=== PATIENT | female | born 1980 | race Hispanic/Latino ===

== ENCOUNTER 2022-12-25 19:14 | Inpatient (IN) | payer OTHER ==
[~2022-12-25 19:14] MED LIST: Iopamidol 300 61% 100 ML VIAL FS ONE
[2022-12-25 20:31] LABS: #Eosinphils 0.4 10x3/uL (0.0-0.5); #Monocytes 0.5 10x3/uL (0.0-1.1); #Neutrophils 6.9 10x3/uL (1.5-8.4); %Basophils 0.2 % (0.0-2.0); %Eosinophils 3.4 % (0.0-6.0); %Lymphocytes 25.2 % (18.0-47.0); %Monocytes 4.9 % (0.0-10.0); %Neutrophils 65.8 % (40.0-75.0); Hematocrit 31.6 % (34.9-44.5); Hemoglobin 9.7 g/dL (12.0-15.5); Mean Corpuscular HGB CONC 30.7 g/dL (32.0-36.0); Mean Corpuscular Hemoglobin 21.1 pg (27.0-33.0); Mean Corpuscular Volume 68.8 fl (81.6-98.3); Mean Platelet Volume 10.5 fl (7.4-10.4); Platelet Count 316 10x3/uL (150-450); RBC Distribution Width 17.5 % (11.5-14.5); Red Blood Cell (RBC) Count 4.59 10x6/uL (3.90-5.03); White Blood Cell (WBC) Count 10.5 10x3/uL (3.5-10.5)
[2022-12-25 20:37] LABS: Anion Gap 18 mmol/L (10-20); BUN (Urea Nitrogen) 8 mg/dL (7.0-18.7); Calc. Creatinine Clearance 0 mL/min (70-130); Carbon Dioxide 20 mmol/L (22-29); Chloride 106 mmol/L (98-107); Potassium 4.9 mmol/L (3.5-5.1); Sodium 139 mmol/L (136-145)
[2022-12-25 20:38] LABS: ALT (SGPT) 35 U/L (8-55); AST (SGOT) 53 U/L (5-34); Albumin 3.6 g/dL (3.5-5.0); Alkaline Phosphatase 89 U/L (40-110); Bilirubin, Total 0.4 mg/dL (0.2-1.2); Calcium 8.6 mg/dL (7.8-10.44); Estimated GFR 115; Globulin 3.8 g/dL (2.4-3.5); Glucose 95 mg/dL (70-105); Lipase 8 U/L (8-78); Protein, Total 7.4 g/dL (6.0-8.3)
[2022-12-25 21:36] LABS: Microcytosis SLIGHT = 6-15 cells (100X) (0-5/hpf)
[2022-12-25] MEDS ORDERED: Ondansetron PF 4 MG/2 ML Vial ONE (22:04)
[2022-12-25] MEDS ORDERED: Morphine 4 MG/ML VIAL ONE (22:04)
[2022-12-25 22:09] LABS: Bilirubin Neg (Negative); Blood, Urine 10 (Negative); Clarity Clear (Clear); Glucose, Urine (Dipstick) Normal (Negative); Ketone, Urine Negative (Negative); Leukocyte 100 (Negative); Nitrite Negative (Negative); Protein, Urine (Dipstick) Negative (Neg-Trace); Urobilinogen Normal mg/dL (Less than 2)
[2022-12-25 22:42] LABS: Bacteria/HPF None Seen HPF (None Seen); CAUTI Indications for Culture Pelvic or flank pain; RBC/HPF 0-3 HPF (0-3); WBC/HPF 0-3 HPF (0-3)
[2022-12-25 22:43] LABS: Urine Culture Reflex No No
[2022-12-25] MEDS ORDERED: HYDROmorphone 0.5 MG/0.5 ML SYRINGE ONE (23:33)
[2022-12-25] MEDS ORDERED: Piperacillin/Tazobactam 3.375 GM VIAL ONE (23:33)
[2022-12-26 00:43] VITALS: BMI 62.0
[2022-12-26] MEDS ORDERED: Morphine 4 MG/ML VIAL ONE (02:32)
[2022-12-26 04:28] LABS: Lactic Acid 1.5 mmol/L (0.5-2.2)
[2022-12-26] MEDS ORDERED: Ketorolac Tromethamine 30 MG/ML VIAL IVP SCH (09:15)
[2022-12-26] MEDS ORDERED: CEFAZOLIN 2 GM in Sodium Chloride 0.9% 100 ML IVPB SCH (09:15)
[2022-12-26] MEDS: Sodium Chloride 0.9% 1,000 ML IV SCH ×2 (09:22→17:30)
[2022-12-26] MEDS ORDERED: EPINEPHrine 1 MG/ML VIAL ONE (09:25)
[2022-12-26] MEDS ORDERED: Bupivacaine PF 0.5% 30 ML VIAL ONE (09:26)
[2022-12-26] MEDS ORDERED: PROPOFOL 20 ML ONE ×2 (09:56→13:55)
[2022-12-26] MEDS ORDERED: fentaNYL 50 mcg/mL 1 mL Vial ONE ×6 (09:56→14:38)
[2022-12-26] MEDS ORDERED: Lidocaine 1% PF 5 ML VIAL ONE (10:08)
[2022-12-26] MEDS ORDERED: Rocuronium Bromide 10 MG/ML (10ML VIAL) ONE ×2 (10:08→12:54)
[2022-12-26] MEDS ORDERED: Dexamethasone 4 mg/ml Vial ONE (10:13)
[2022-12-26] MEDS ORDERED: Ondansetron PF 4 MG/2 ML Vial ONE (10:13)
[2022-12-26] MEDS ORDERED: CEFAZOLIN 1 GM VIAL ONE (10:27)
[2022-12-26] MEDS ORDERED: KETAMINE 100 MG/ML (5ML VIAL) ONE (10:38)
[2022-12-26] MEDS ORDERED: Glycopyrrolate 0.2 MG/ML 5 ML SYRINGE ONE (12:17)
[2022-12-26] MEDS ORDERED: Ketorolac Tromethamine 30 MG/ML VIAL ONE (12:45)
[2022-12-26] MEDS ORDERED: SUGAMMADEX SODIUM 200 MG/2 ML VIAL ONE (13:01)
[2022-12-26] MEDS ORDERED: Ondansetron PF 4 MG/2 ML Vial IVP PRN (14:23)
[2022-12-26] MEDS ORDERED: TETANUS, DIPHTHERIA TOX,ADULT (TDVAX) 0.5 ML VIAL IM ONE (14:23)
[2022-12-26] MEDS ORDERED: hydrALAZINE 20 MG/ML VIAL SLOW IVP PRN (14:23)
[2022-12-26] MEDS ORDERED: Ondansetron ODT 4 MG TAB PO PRN (14:23)
[2022-12-26] MEDS ORDERED: traMADol HCl 50 MG TAB PO PRN (14:23)
[2022-12-26] MEDS ORDERED: Gabapentin 300 MG CAP PO SCH (15:00)
[2022-12-26] MEDS: Morphine 4 MG/ML VIAL SLOW IVP PRN ×4 (15:08→20:00)
[2022-12-26] MEDS: Sodium Chloride 0.45% 1,000 ML IV SCH ×2 (15:14→23:02)
[2022-12-26] MEDS: Gabapentin 300 MG CAP PO SCH ×2 (16:36→20:01)
[2022-12-26] MEDS: Ketorolac Tromethamine 30 MG/ML VIAL IVP SCH ×2 (18:00→23:02)
[2022-12-26] MEDS: Famotidine 20 MG TAB PO SCH (20:01)
[2022-12-27] MEDS: Morphine 4 MG/ML VIAL SLOW IVP PRN ×2 (02:32→08:21)
[2022-12-27 03:49] LABS: #Monocytes 0.8 10x3/uL (0.0-1.1); %Basophils 0.1 % (0.0-2.0); %Eosinophils 0.4 % (0.0-6.0); %Lymphocytes 14.6 % (18.0-47.0); %Monocytes 7.5 % (0.0-10.0); %Neutrophils 76.9 % (40.0-75.0); Hematocrit 29.5 % (34.9-44.5); Hemoglobin 8.8 g/dL (12.0-15.5); Mean Corpuscular HGB CONC 29.8 g/dL (32.0-36.0); Mean Corpuscular Hemoglobin 21.4 pg (27.0-33.0); Mean Corpuscular Volume 71.8 fl (81.6-98.3); Mean Platelet Volume 10.3 fl (7.4-10.4); Platelet Count 330 10x3/uL (150-450); RBC Distribution Width 17.6 % (11.5-14.5); Red Blood Cell (RBC) Count 4.11 10x6/uL (3.90-5.03); White Blood Cell (WBC) Count 10.4 10x3/uL (3.5-10.5)
[2022-12-27 03:50] LABS: ALT (SGPT) 32 U/L (8-55); AST (SGOT) 21 U/L (5-34); Albumin 3.5 g/dL (3.5-5.0); Alkaline Phosphatase 78 U/L (40-110); Anion Gap 13 mmol/L (10-20); BUN (Urea Nitrogen) 8 mg/dL (7.0-18.7); Bilirubin, Total 0.7 mg/dL (0.2-1.2); Calc. Creatinine Clearance 301 mL/min (70-130); Carbon Dioxide 24 mmol/L (22-29); Chloride 106 mmol/L (98-107); Estimated GFR 114; Glucose 125 mg/dL (70-105); Potassium 3.6 mmol/L (3.5-5.1); Protein, Total 6.5 g/dL (6.0-8.3); Sodium 139 mmol/L (136-145)
[2022-12-27] MEDS: Ketorolac Tromethamine 30 MG/ML VIAL IVP SCH ×2 (05:39→11:22)
[2022-12-27] MEDS: Gabapentin 300 MG CAP PO SCH ×2 (08:20→15:30)
[2022-12-27] MEDS: Famotidine 20 MG TAB PO SCH (08:21)
[2022-12-27] MEDS ORDERED: Hydrochlorothiazide 25 MG TAB PO SCH (09:00)
[2022-12-27 09:24] VITALS: TEMP 98.7
[2022-12-27] MEDS: Sodium Chloride 0.45% 1,000 ML IV SCH (09:59)
[2022-12-27] MEDS ORDERED: Amoxicillin/Potassium Clav 875 MG TAB PO SCH ×2 (11:00→21:00)
[2022-12-27] MEDS ORDERED: Acetaminophen 500 MG TAB PO PRN (11:46)
[2022-12-27] MEDS ORDERED: Acetaminophen 500 MG TAB PO SCH (12:00)
[2022-12-27 12:04] VITALS: BP 124/76
[2022-12-27] MEDS ORDERED: Ibuprofen 600 MG TAB PO PRN (17:00)
== END 2022-12-27 17:51 | disposition home or self-care (01) | DRG 354 ==
LOC: CSHERS 19:14 → CSHERHOLD 23:55 → CSHICU 12-26 08:05
PROVIDERS: ADMIT Surgery; ATTEND Surgery
PROC: 0WUF4JZ Supplement Abdominal Wall with Synthetic Substitute, Percutaneous Endoscopic Approach (ICD-10-PCS; principal; 2022-12-26)
PROC: 8E0W4CZ Robotic Assisted Procedure of Trunk Region, Percutaneous Endoscopic Approach (ICD-10-PCS; 2022-12-26)
DX: K43.0 Incisional hernia with obstruction, without gangrene (principal); Z68.44 Body mass index [BMI] 60.0-69.9, adult; I10 Essential (primary) hypertension; Z79.899 Other long term (current) drug therapy; E66.01 Morbid (severe) obesity due to excess calories; Z98.890 Other specified postprocedural states
CPT/HCPCS: 36415; 74177; 80053; 81001; 83605; 83690; 85025; 86850; 86900; 86901; 87040; 87077; 87149; 94762; C1781; J0171; J0690; J1100; J1170; J1650; J1885; J2270; J2405; J2543; J2704; J3010; J7050; Q9967; S0020

== ENCOUNTER 2023-04-08 16:21 | Emergency (ER) | payer OTHER ==
[2023-04-08] MEDS ORDERED: Ketorolac Tromethamine 30 MG (1 mL) VIAL ONE (17:24)
[2023-04-08] MEDS ORDERED: Morphine 4 MG/ML VIAL ONE (17:24)
[2023-04-08 17:43] LABS: #Eosinphils 0.4 10x3/uL (0.0-0.5); #Monocytes 0.6 10x3/uL (0.0-1.1); #Neutrophils 5.6 10x3/uL (1.5-8.4); %Basophils 0.3 % (0.0-2.0); %Lymphocytes 29.2 % (18.0-47.0); %Neutrophils 60.3 % (40.0-75.0); Hematocrit 29.4 % (34.9-44.5); Hemoglobin 8.9 g/dL (12.0-15.5); Mean Corpuscular HGB CONC 30.3 g/dL (32.0-36.0); Mean Corpuscular Hemoglobin 20.1 pg (27.0-33.0); Mean Corpuscular Volume 66.4 fl (81.6-98.3); Platelet Count 408 10x3/uL (150-450); RBC Distribution Width 18.7 % (11.5-14.5); Red Blood Cell (RBC) Count 4.43 10x6/uL (3.90-5.03); White Blood Cell (WBC) Count 9.3 10x3/uL (3.5-10.5)
[2023-04-08 18:32] LABS: BHCG - Serum Negative (NEGATIVE); Pregs Control Background? CLEAR/WHITE (CLR/WHITE); Pregs Control Bar Appear? YES (CONTROL BAR)
[2023-04-08 18:39] LABS: ALT (SGPT) 12 U/L (8-55); AST (SGOT) 13 U/L (5-34); Albumin 3.7 g/dL (3.5-5.0); Alkaline Phosphatase 81 U/L (40-110); Anion Gap 13 mmol/L (10-20); BUN (Urea Nitrogen) 8 mg/dL (7.0-18.7); Bilirubin, Total 0.4 mg/dL (0.2-1.2); Calc. Creatinine Clearance 0 mL/min (70-130); Calcium 8.5 mg/dL (7.8-10.44); Carbon Dioxide 24 mmol/L (22-29); Chloride 107 mmol/L (98-107); Estimated GFR 113; Globulin 3.6 g/dL (2.4-3.5); Glucose 120 mg/dL (70-105); Potassium 3.7 mmol/L (3.5-5.1); Protein, Total 7.3 g/dL (6.0-8.3); Sodium 140 mmol/L (136-145)
[2023-04-08 19:27] LABS: Bilirubin Neg (Negative); Blood, Urine 10 (Negative); Clarity Clear (Clear); Glucose, Urine (Dipstick) Normal (Negative); Ketone, Urine Negative (Negative); Leukocyte 25 (Negative); Nitrite Negative (Negative); Protein, Urine (Dipstick) Negative (Neg-Trace); Urobilinogen Normal mg/dL (Less than 2)
[2023-04-08 19:44] LABS: Bacteria/HPF 3+ HPF (None Seen); CAUTI Indications for Culture Pelvic or flank pain; Mucous/LPF 1+ LPF (<2+); RBC/HPF 0-3 HPF (0-3); Transitional Epithelial 0-3 HPF (None Seen); WBC/HPF 0-3 HPF (0-3)
[2023-04-08 19:45] LABS: Urine Culture Reflex No No
[2023-04-08 19:59] LABS: Anisocytosis SLIGHT = 6-15 cells (100X) (0-5/hpf); Hypochromia SLIGHT = 6-15 cells (100X) (0-5/hpf); Microcytosis MODERATE=15-30 cells (100X) (0-5/hpf); Polychromasia SLIGHT = 2-3 cells (100X) (0-2/hpf)
[2023-04-08 20:01] LABS: Ovalocytes SLIGHT = 2-5 cells (100X) (0-1/hpf); Platelet Adequacy Comment Appears Increased
== END 2023-04-08 20:55 | disposition home or self-care (01) ==
LOC: CSHERS 16:21
DX: K91.872 Postprocedural seroma of a digestive system organ or structure following a digestive system procedure (principal); S93.401A Sprain of unspecified ligament of right ankle, initial encounter; I10 Essential (primary) hypertension; X50.0XXA Overexertion from strenuous movement or load, initial encounter
CPT/HCPCS: 74176; 80053; 81001; 84703; 85025; 96374; 96375; J1885; J2270